=== PATIENT | male | born 1955 | race Caucasian/White ===

== ENCOUNTER 2016-06-30 00:01 | Outpatient (POV) | END 2016-06-30 00:02 | LOC: OUTPT 00:01 | PROVIDERS: ATTEND Otolaryngology | DX: H69.90 Unspecified Eustachian tube disorder, unspecified ear (principal) | CPT/HCPCS: 92557 ==

== ENCOUNTER → 2016-10-26 | Outpatient (POV) | LOC: OUTPT 00:01 | PROVIDERS: ATTEND Otolaryngology | DX: H91.90 Unspecified hearing loss, unspecified ear (principal); H69.90 Unspecified Eustachian tube disorder, unspecified ear | CPT/HCPCS: 92557 ==

== ENCOUNTER 2016-11-03 07:12 | Day surgery (SDC) ==
[2016-11-03] MEDS ORDERED: SUBLIMAZE ONE (08:30)
[2016-11-03] MEDS ORDERED: DIPRIVAN 20 ML VIAL IVP ONE (08:30)
[2016-11-03] MEDS ORDERED: VERSED ONE (08:30)
[2016-11-03] MEDS ORDERED: SUFENTA IVP ONE (08:30)
[2016-11-03] MEDS ORDERED: LIDOCAINE 1%-EPI 1:100,000 10 ML (SURGERY) INJ ONE (08:41)
[2016-11-03] MEDS ORDERED: NEO-SYNEPHRINE MUCOUSMEMB ONE (08:44)
[2016-11-03] MEDS ORDERED: NEOSPORIN OINT 0.9 GM PACKET TP ONE (09:10)
[2016-11-03 10:57] VITALS: BP 114/76; TEMP 98.6
--- NOTE | 2016-11-03 12:48 | OP ---
PREOPERATIVE DIAGNOSIS: RIGHT TYMPANIC MEMBRANE PERFORATION. POSTOPERATIVE DIAGNOSIS: RIGHT TYMPANIC MEMBRANE PERFORATION. OPERATION: RIGHT TYPE 1 TYMPANOPLASTY. DESCRIPTION OF PROCEDURE: The patient was taken to surgery, placed on the table and general anesthesia was administered. 1% Xylocaine to 100,000 Epinephrine was injected in the external ear canal. Xylocaine and Epinephrine was injected into the tragus and a tragal perichondrial graft was obtained. The cartilage was placed back in the graft site and incision was closed using interrupted 6-0 Chromic suture. Edges of the perforation were freshened up with a straight pick and a small myringotomy incision was made. A tympanomeatal flap was created between 6 and 12 o'clock and dissection was carried down the annulus and the annulus was elevated. The middle ear was filled with pledgets of Gelfoam. The perichondrial graft was laid under the tympanic membrane and tucked up under the surface of the drum. The annulus was placed back in its anatomical position. Gelfoam was placed against the surface of the drum and the ear canal was filled with antibiotic ointment. The patient's left ear was inspected. There is no evidence of infection. He was extubated and returned to the recovery room in satisfactory condition. SOLANGE
== END 2016-11-03 10:54 | disposition home or self-care (01) ==
LOC: SURG 07:12
PROVIDERS: ATTEND Otolaryngology
DX: H72.91 Unspecified perforation of tympanic membrane, right ear (principal)

== ENCOUNTER → 2016-11-17 | Outpatient (POV) | payer OTHER | LOC: OUTPT 00:01 | PROVIDERS: ATTEND Otolaryngology | DX: Z09 Encounter for follow-up examination after completed treatment for conditions other than malignant neoplasm (principal); H72.90 Unspecified perforation of tympanic membrane, unspecified ear; Z98.890 Other specified postprocedural states | CPT/HCPCS: 92557 ==

== ENCOUNTER 2017-03-23 00:01 | Outpatient (POV) | END 2017-03-23 00:02 | LOC: OUTPT 00:01 | PROVIDERS: ATTEND Otolaryngology | DX: H91.90 Unspecified hearing loss, unspecified ear (principal); H69.90 Unspecified Eustachian tube disorder, unspecified ear | CPT/HCPCS: 92553 ==

== ENCOUNTER 2017-06-22 07:11 | Day surgery (SDC) ==
[2017-06-22] MEDS ORDERED: NEO-SYNEPHRINE OT PRN (08:01)
[2017-06-22] MEDS ORDERED: CORTISPORIN OTIC SUSP OT PRN (08:01)
[2017-06-22] MEDS ORDERED: DIPRIVAN 20 ML VIAL IVP ONE (09:20)
[2017-06-22] MEDS ORDERED: VERSED ONE (09:20)
[2017-06-22] MEDS ORDERED: DECADRON 4 MG/ML SDV ONE (09:20)
[2017-06-22] MEDS ORDERED: SUBLIMAZE ONE (09:20)
[2017-06-22] MEDS ORDERED: ANECTINE ONE (09:20)
[2017-06-22 11:00] VITALS: BP 110/68; TEMP 97.8
--- NOTE | 2017-06-24 10:33 | OP ---
PREOPERATIVE DIAGNOSIS: RULE OUT CARCINOMA OF THE BASE OF THE TONGUE. POSTOPERATIVE DIAGNOSIS: CYST VERSUS LYMPHOID TISSUE ON THE LEFT BASE OF THE TONGUE. OPERATION: DIRECT LARYNGOSCOPY, EXCISION OF LESION BASE OF TONGUE SUPRAGLOTTIC AREA PROCEDURE: The patient was taken to surgery, placed on the table and general anesthesia was administered. Endotracheal tube was inserted and then anterior laryngoscope was inserted to the level of the vocal cords and using a 4mm lens there was noted to be a lesion of the left base of tongue which is approximately 2cm to 3cm in diameter. The area was then grafted with various cup forceps and largely excised. It appeared to a cystic area not a tumor. Bleeding was a minimal and after the lesion was excised, pressure dressing was placed on the base of the tongue. The bleeding was significantly controlled. The patient was then extubated and return to the recovery room in satisfactory condition. SOLANGE
== END 2017-06-22 11:15 | disposition home or self-care (01) ==
LOC: SURG 07:11
PROVIDERS: ATTEND Otolaryngology
DX: K14.8 Other diseases of tongue (principal)

== ENCOUNTER 2017-09-06 09:31 | Outpatient (POV) | END 2017-09-06 17:00 | LOC: OUTPT 09:31 | PROVIDERS: ATTEND Otolaryngology | DX: H69.90 Unspecified Eustachian tube disorder, unspecified ear (principal) ==